=== PATIENT | male | born 1935 | race Caucasian/White ===

== ENCOUNTER 2018-03-07 21:00 | Inpatient (IN) | payer MEDICARE, OTHER ==
[2018-03-07 21:48] LABS: ADD MAN DIFF? NO
[2018-03-07 21:54] LABS: WHITE BLOOD COUNT 10.5 10^3/ul (4.8-10.8)
[2018-03-07 21:54] LABS: BASOPHILS % 0.3 % (0.0-2.0); EOSINOPHILS # 0.1 10^3/ul (0.0-0.5); EOSINOPHILS % 0.5 % (0.0-7.0); HEMATOCRIT 38.9 % (42.0-52.0); HEMOGLOBIN 13.1 g/dl (14.0-18.0); LYMPHOCYTES # 1.1 10^3/ul (0.8-2.9); LYMPHOCYTES % 10.3 % (15.0-51.0); MEAN CORPUSCULAR HEMOGLOBIN 30.5 pg (29.0-33.0); MEAN CORPUSCULAR HGB CONC 33.7 g/dl (32.0-37.0); MEAN CORPUSCULAR VOLUME 90.7 fl (82.0-101.0); MEAN PLATELET VOLUME 10.6 fl (7.4-10.4); MONOCYTE # 0.2 10^3/ul (0.3-0.9); MONOCYTES % 1.6 % (0.0-11.0); NEUTROPHIL # 9.1 10^3/ul (1.6-7.5); NEUTROPHILS % 86.8 % (39.0-77.0); PLATELET COUNT 146 10^3/UL (140-415); RED BLOOD COUNT 4.29 10^6/ul (4.70-6.10); RED CELL DISTRIBUTION WIDTH 13.2 % (11.5-14.5)
[2018-03-07 22:06] LABS: ADD UMIC YES; UR ASCORBIC ACID NEGATIVE (NEGATIVE); UR BACTERIA FEW /HPF (NONE SEEN); UR BILIRUBIN (Dip) NEGATIVE (NEGATIVE); UR BLOOD (Dip) 1+ mg/dL (NEGATIVE); UR CLARITY SLIGHTLY CLOUDY (CLEAR); UR COLOR YELLOW (YELLOW); UR GLUCOSE (Dip) NEGATIVE (NEGATIVE); UR KETONES (Dip) TRACE mg/dL (NEGATIVE); UR LEUKOCYTE ESTERASE (Dip) 3+ Leu/ul (NEGATIVE); UR MUCUS FEW /HPF (NONE SEEN); UR NITRITE (Dip) NEGATIVE (NEGATIVE); UR RBC 3 /HPF (0-5); UR SPECIFIC GRAVITY (Dip) 1.012 (1.003-1.030); UR TOTAL PROTEIN (Dip) NEGATIVE (NEGATIVE); UR UROBILINOGEN (Dip) NEGATIVE (NEGATIVE); UR WBC 48 /HPF (0-5)
[2018-03-07 22:18] LABS: LACTIC ACID 4.7 mmol/L (0.5-2.0)
[2018-03-07] MEDS: SODIUM CHLORIDE 0.9% 1L BAG IV* (22:18)
[2018-03-07 22:20] LABS: INR 1.03; PARTIAL THROMBOPLASTIN TIME 27.7 Sec (25.0-35.0); PROTIME 13.6 Sec (11.9-14.9); PT RATIO 1.1
[2018-03-07 22:31] LABS: ALANINE AMINOTRANSFERASE 35 IU/L (13-69); ALBUMIN 4.1 g/dl (3.3-4.9); ALBUMIN/GLOBULIN RATIO 1.41; ALKALINE PHOSPHATASE 101 IU/L (42-121); ANION GAP 20 (8-16); ASPARTATE AMINO TRANSFERASE 36 IU/L (15-46); BILIRUBIN,INDIRECT 0.5 mg/dl (0-1.1); BILIRUBIN,TOTAL 0.5 mg/dl (0.2-1.3); BLOOD UREA NITROGEN 11 mg/dl (7-20); CARBON DIOXIDE 20 mmol/L (21-31); CHLORIDE 101 mmol/L (97-110); CREATININE 0.94 mg/dl (0.61-1.24); GLUCOSE 177 mg/dl (70-220); POTASSIUM 3.4 mmol/L (3.5-5.1); SODIUM 138 mmol/L (135-144)
[2018-03-07] MEDS: CEFEPIME 2GM/50 ML (PMX) 50 ML IVPB (22:37)
[2018-03-07 22:42] LABS: TROPONIN-I 0.039 ng/ml (0.000-0.120)
[2018-03-08] MEDS ORDERED: hydrALAzine 20 MG INJ IV
[2018-03-08] MEDS ORDERED: ONDANSETRON 4 MG INJ IV
[2018-03-08] MEDS ORDERED: MAGNESIUM HYDROXIDE 30ML CUP PO
[2018-03-08] MEDS ORDERED: ALBUTEROL HFA 8 GM INHALER INH
[2018-03-08] MEDS ORDERED: NACL 0.9% 3 ML SYG IV ×2
[2018-03-08] MEDS ORDERED: DOCUSATE SODIUM 100 MG CAP PO
[2018-03-08] MEDS ORDERED: BISACODYL 10 MG SUPP PR
[2018-03-08 00:12] LABS: LACTIC ACID 5.5 mmol/L (0.5-2.0)
[2018-03-08] MEDS: VANCOMYCIN 1 GM (PMX) 250 ML IVPB (00:22)
[2018-03-08] MEDS: POTASSIUM CHLORIDE (SR) 20 MEQ TAB PO (00:22)
[2018-03-08] MEDS: SOD CHLORIDE 0.9% 1,000 ML IV ×3 (02:24→20:47)
[2018-03-08] MEDS: ACETAMINOPHEN 325 MG TAB PO ×2 (03:00→19:10)
[2018-03-08 03:55] LABS: LACTIC ACID 2.5 mmol/L (0.5-2.0)
[2018-03-08] MEDS: PANTOPRAZOLE (EC) 40 MG TAB PO (05:43)
[2018-03-08] MEDS: LEVOTHYROXINE 50 MCG TAB PO (07:00)
[2018-03-08 07:37] LABS: ADD MAN DIFF? NO
[2018-03-08 07:53] LABS: WHITE BLOOD COUNT 14.5 10^3/ul (4.8-10.8)
[2018-03-08 07:53] LABS: ABNORMAL IP MESSAGE 1; BASOPHILS % 0.1 % (0.0-2.0); EOSINOPHILS % 0.2 % (0.0-7.0); HEMATOCRIT 36.7 % (42.0-52.0); LYMPHOCYTES # 0.6 10^3/ul (0.8-2.9); MEAN CORPUSCULAR HEMOGLOBIN 30.6 pg (29.0-33.0); MEAN CORPUSCULAR HGB CONC 32.7 g/dl (32.0-37.0); MEAN CORPUSCULAR VOLUME 93.6 fl (82.0-101.0); MEAN PLATELET VOLUME 11.9 fl (7.4-10.4); MONOCYTE # 0.5 10^3/ul (0.3-0.9); MONOCYTES % 3.1 % (0.0-11.0); NEUTROPHIL # 13.3 10^3/ul (1.6-7.5); NEUTROPHILS % 92.3 % (39.0-77.0); PLATELET COUNT 135 10^3/UL (140-415); POSITIVE DIFF @See below; RED BLOOD COUNT 3.92 10^6/ul (4.70-6.10); RED CELL DISTRIBUTION WIDTH 13.6 % (11.5-14.5)
[2018-03-08 08:30] LABS: ANION GAP 14 (8-16); BLOOD UREA NITROGEN 11 mg/dl (7-20); CALCIUM 7.9 mg/dl (8.4-10.2); CARBON DIOXIDE 23 mmol/L (21-31); CHLORIDE 109 mmol/L (97-110); CREATININE 0.88 mg/dl (0.61-1.24); GLUCOSE 126 mg/dl (70-220); MAGNESIUM 1.5 mg/dl (1.7-2.5); PHOSPHORUS 2.8 mg/dl (2.5-4.9); POTASSIUM 4.1 mmol/L (3.5-5.1); SODIUM 142 mmol/L (135-144)
[2018-03-08] MEDS: OLOPATADINE 0.2% (ONCE A DAY) OPHTH DROP 2.5 ML BOTH EYES (08:37)
[2018-03-08] MEDS: FISH OIL 1,000 MG CAP PO ×2 (08:37→20:48)
[2018-03-08] MEDS: PREGABALIN 75 MG CAP PO ×2 (08:37→20:48)
[2018-03-08] MEDS: ENOXAPARIN 40 MG/0.4 ML SYG SC (08:42)
[2018-03-08] MEDS ORDERED: [UNRECOGNIZED DRUG - OTHER] OP (09:00)
[2018-03-08] MEDS ORDERED: CEFEPIME 2GM/50 ML (PMX) 50 ML IVPB (09:00)
[2018-03-08] MEDS ORDERED: DEXTRAN OP (09:00)
[2018-03-08] MEDS ORDERED: HYPROMELLOSE OP (09:00)
[2018-03-08] MEDS ORDERED: LEVALBUTEROL (NEB) 0.63 MG/3 ML AMP (10:45)
[2018-03-08] MEDS: LEVALBUTEROL (NEB) 0.63 MG/3 ML AMP HHN ×2 (10:48→11:06)
[2018-03-08] MEDS ORDERED: IPRATROPIUM (NEB) 0.5 MG/2.5 ML AMP (11:03)
[2018-03-08] MEDS: IPRATROPIUM (NEB) 0.5 MG/2.5 ML AMP HHN (11:09)
[2018-03-08] MEDS: MAGNESIUM SULFATE 4 GM/100 ML 100 ML IVPB (11:30)
[2018-03-08] MEDS ORDERED: GLUCAGON 1 MG INJ IM (12:00)
[2018-03-08] MEDS ORDERED: GLUCOSE GEL 15 GRAM TUBE BUCCAL (12:00)
[2018-03-08] MEDS ORDERED: GLUCOSE GEL 15 GRAM TUBE PO ×2 (12:00)
[2018-03-08] MEDS: INSULIN ASPART [NOVOLOG] 3 ML PEN SC ×3 (12:00→20:59)
[2018-03-08] MEDS: ARTIFICIAL TEARS 15 ML OPH BOTH EYES (12:00)
[2018-03-08] MEDS ORDERED: DEXTROSE 50% 50 ML SYRINGE IV ×2 (12:00)
[2018-03-08 12:39] LABS: LACTIC ACID 5.2 mmol/L (0.5-2.0)
[2018-03-08] MEDS: MEROPENEM 1 GM/50ML(PMX) 50 ML IVPB ×2 (14:34→21:00)
[2018-03-08 17:11] LABS: LACTIC ACID 2.3 mmol/L (0.5-2.0)
[2018-03-08] MEDS: ATORVASTATIN 20 MG TAB PO (20:48)
[2018-03-09] MEDS: ACCU-CHEK XX (02:00)
[2018-03-09] MEDS: ACETAMINOPHEN 325 MG TAB PO (04:29)
[2018-03-09] MEDS ORDERED: METHYLPREDNISOLONE 125 MG INJ (04:46)
[2018-03-09] MEDS: LEVALBUTEROL (NEB) 0.63 MG/3 ML AMP HHN (04:52)
[2018-03-09] MEDS: IPRATROPIUM (NEB) 0.5 MG/2.5 ML AMP HHN (04:52)
[2018-03-09] MEDS: METHYLPREDNISOLONE 125 MG INJ IV (05:06)
[2018-03-09] MEDS: FUROSEMIDE 40 MG INJ IV ×2 (05:07→05:42)
[2018-03-09] MEDS ORDERED: LORAZEPAM 2 MG INJ (05:39)
[2018-03-09] MEDS: SOD CHLORIDE 0.9% 1,000 ML IV ×2 (05:46→15:52)
[2018-03-09] MEDS: MEROPENEM 1 GM/50ML(PMX) 50 ML IVPB ×3 (05:52→21:34)
[2018-03-09] MEDS: PANTOPRAZOLE (EC) 40 MG TAB PO (06:00)
[2018-03-09] MEDS ORDERED: METHYLPREDNISOLONE 40 MG INJ IV (06:00)
[2018-03-09] MEDS: LORAZEPAM 2 MG INJ IV (06:04)
[2018-03-09 06:40] LABS: WHITE BLOOD COUNT 10.1 10^3/ul (4.8-10.8)
[2018-03-09 06:40] LABS: HEMATOCRIT 38.8 % (42.0-52.0); HEMOGLOBIN 12.8 g/dl (14.0-18.0); MEAN CORPUSCULAR HEMOGLOBIN 30.5 pg (29.0-33.0); MEAN CORPUSCULAR VOLUME 92.6 fl (82.0-101.0); MEAN PLATELET VOLUME 11.9 fl (7.4-10.4); PLATELET COUNT 119 10^3/UL (140-415); POSITIVE DIFF @See below; RED BLOOD COUNT 4.19 10^6/ul (4.70-6.10); RED CELL DISTRIBUTION WIDTH 13.9 % (11.5-14.5)
[2018-03-09] MEDS: LEVOTHYROXINE 50 MCG TAB PO (06:45)
[2018-03-09 06:48] LABS: ADD MAN DIFF? YES
[2018-03-09 06:51] LABS: HEMOGLOBIN A1C 7.6 % (0-5.9)
[2018-03-09 07:03] LABS: PHOSPHORUS 2.9 mg/dl (2.5-4.9)
[2018-03-09 07:11] LABS: ALANINE AMINOTRANSFERASE 25 IU/L (13-69); ALBUMIN 3.6 g/dl (3.3-4.9); ALBUMIN/GLOBULIN RATIO 1.16; ALKALINE PHOSPHATASE 89 IU/L (42-121); ANION GAP 18 (8-16); ASPARTATE AMINO TRANSFERASE 47 IU/L (15-46); BILIRUBIN,INDIRECT 0.3 mg/dl (0-1.1); BILIRUBIN,TOTAL 0.3 mg/dl (0.2-1.3); BLOOD UREA NITROGEN 13 mg/dl (7-20); CALCIUM 8.1 mg/dl (8.4-10.2); CARBON DIOXIDE 14 mmol/L (21-31); CHLORIDE 110 mmol/L (97-110); CREATININE 1.04 mg/dl (0.61-1.24); GLUCOSE 212 mg/dl (70-220); POTASSIUM 3.9 mmol/L (3.5-5.1); SODIUM 138 mmol/L (135-144); TOTAL PROTEIN 6.7 g/dl (6.1-8.1)
[2018-03-09 07:33] LABS: ANISOCYTOSIS 1+ (0-0); BAND NEUTROPHILS #M 2.7 10^3/ul (0.0-0.6); BAND NEUTROPHILS % (M) 27 % (0-4); BURR CELLS 3+ (0-0); LYMPHOCYTES #M 1.1 10^3/ul (0.8-2.9); LYMPHOCYTES % (M) 11 % (15-51); MICROCYTOSIS 1+ (0-0); MONOCYTE #M 0.3 10^3/ul (0.3-0.9); MONOCYTES % (M) 3 % (0-11); PLATELET ESTIMATE DECREASED; POIKILOCYTOSIS 3+ (0-0); SEG NEUT #M 6.2 10^3/ul (1.6-7.5); SEGMENTED NEUTROPHILS (M) % 59 % (39-77); SMUDGE%M 1 % (0-0)
[2018-03-09 07:48] LABS: B-TYPE NATRIURETIC PEPTIDE 5510 PG/ML (0-450)
[2018-03-09] MEDS: ARTIFICIAL TEARS 15 ML OPH BOTH EYES (08:44)
[2018-03-09] MEDS: PREGABALIN 75 MG CAP PO ×2 (08:45→21:25)
[2018-03-09] MEDS: FISH OIL 1,000 MG CAP PO ×2 (08:45→21:25)
[2018-03-09] MEDS: OLOPATADINE 0.2% (ONCE A DAY) OPHTH DROP 2.5 ML BOTH EYES (08:45)
[2018-03-09] MEDS: ENOXAPARIN 40 MG/0.4 ML SYG SC (10:09)
[2018-03-09] MEDS: INSULIN ASPART [NOVOLOG] 3 ML PEN SC ×4 (10:09→21:43)
[2018-03-09 13:35] LABS: LACTIC ACID 3.1 mmol/L (0.5-2.0)
[2018-03-09 13:36] LABS: CREATINE KINASE 531 IU/L (23-200)
[2018-03-09 13:42] LABS: CK INDEX 1.1; CK-MB 5.85 ng/ml (0.0-2.4)
[2018-03-09] MEDS: ASPIRIN 81 MG TAB PO (18:24)
[2018-03-09 21:02] LABS: CREATINE KINASE 492 IU/L (23-200)
[2018-03-09 21:14] LABS: CK INDEX 1.4; CK-MB 6.73 ng/ml (0.0-2.4); TROPONIN-I 0.779 ng/ml (0.000-0.120)
[2018-03-09] MEDS: ATORVASTATIN 40 MG TAB PO (21:25)
[2018-03-09] MEDS: ENOXAPARIN 100 MG/ML SYG SC (21:42)
[2018-03-09] MEDS: INSULIN GLARGINE [LANTus] (100 UNITS/ML) SYG SC (23:35)
[2018-03-10] MEDS: ACCU-CHEK XX (02:00)
[2018-03-10] MEDS: PANTOPRAZOLE (EC) 40 MG TAB PO (06:11)
[2018-03-10] MEDS: LEVOTHYROXINE 50 MCG TAB PO (06:11)
[2018-03-10] MEDS: MEROPENEM 1 GM/50ML(PMX) 50 ML IVPB ×3 (06:12→21:18)
[2018-03-10 07:22] LABS: ADD MAN DIFF? NO
[2018-03-10 07:27] LABS: BASOPHILS % 0.1 % (0.0-2.0); HEMATOCRIT 32.6 % (42.0-52.0); HEMOGLOBIN 10.8 g/dl (14.0-18.0); LYMPHOCYTES # 0.9 10^3/ul (0.8-2.9); LYMPHOCYTES % 6.3 % (15.0-51.0); MEAN CORPUSCULAR HEMOGLOBIN 29.8 pg (29.0-33.0); MEAN CORPUSCULAR HGB CONC 33.1 g/dl (32.0-37.0); MEAN CORPUSCULAR VOLUME 89.8 fl (82.0-101.0); MEAN PLATELET VOLUME 11.5 fl (7.4-10.4); MONOCYTE # 1.2 10^3/ul (0.3-0.9); NEUTROPHIL # 12.4 10^3/ul (1.6-7.5); NEUTROPHILS % 84.8 % (39.0-77.0); PLATELET COUNT 115 10^3/UL (140-415); RED BLOOD COUNT 3.63 10^6/ul (4.70-6.10); RED CELL DISTRIBUTION WIDTH 13.6 % (11.5-14.5)
[2018-03-10 07:27] LABS: WHITE BLOOD COUNT 14.6 10^3/ul (4.8-10.8)
[2018-03-10 08:05] LABS: ANION GAP 9 (8-16); BLOOD UREA NITROGEN 23 mg/dl (7-20); CALCIUM 8.1 mg/dl (8.4-10.2); CARBON DIOXIDE 23 mmol/L (21-31); CHLORIDE 112 mmol/L (97-110); CREATININE 0.89 mg/dl (0.61-1.24); GLUCOSE 196 mg/dl (70-220); POTASSIUM 3.9 mmol/L (3.5-5.1); SODIUM 140 mmol/L (135-144)
[2018-03-10] MEDS: FISH OIL 1,000 MG CAP PO ×2 (08:44→21:17)
[2018-03-10] MEDS: PREGABALIN 75 MG CAP PO ×2 (08:44→21:17)
[2018-03-10] MEDS: OLOPATADINE 0.2% (ONCE A DAY) OPHTH DROP 2.5 ML BOTH EYES (08:44)
[2018-03-10] MEDS: ASPIRIN 81 MG TAB PO (08:44)
[2018-03-10] MEDS: ARTIFICIAL TEARS 15 ML OPH BOTH EYES (08:45)
[2018-03-10] MEDS: INSULIN ASPART [NOVOLOG] 3 ML PEN SC ×4 (08:49→21:00)
[2018-03-10] MEDS: ENOXAPARIN 100 MG/ML SYG SC ×2 (08:50→21:35)
[2018-03-10 09:00] LABS: MAGNESIUM 2.3 mg/dl (1.7-2.5)
[2018-03-10] MEDS ORDERED: INSULIN GLARGINE [LANTus] (100 UNITS/ML) SYG SC (20:00)
[2018-03-10] MEDS: ATORVASTATIN 40 MG TAB PO (21:17)
[2018-03-10] MEDS: INSULIN GLARGINE [LANTus] (100 UNITS/ML) SYG SC (21:37)
[2018-03-11] MEDS: ACCU-CHEK XX (02:00)
[2018-03-11] MEDS: LEVOTHYROXINE 50 MCG TAB PO (06:03)
[2018-03-11] MEDS: PANTOPRAZOLE (EC) 40 MG TAB PO (06:03)
[2018-03-11] MEDS: MEROPENEM 1 GM/50ML(PMX) 50 ML IVPB ×3 (06:04→21:40)
[2018-03-11 06:29] LABS: ADD MAN DIFF? NO
[2018-03-11 06:34] LABS: BASOPHILS % 0.2 % (0.0-2.0); EOSINOPHILS # 0.1 10^3/ul (0.0-0.5); EOSINOPHILS % 0.7 % (0.0-7.0); HEMATOCRIT 36.4 % (42.0-52.0); HEMOGLOBIN 12.2 g/dl (14.0-18.0); LYMPHOCYTES # 2.3 10^3/ul (0.8-2.9); LYMPHOCYTES % 19.9 % (15.0-51.0); MEAN CORPUSCULAR HEMOGLOBIN 30.3 pg (29.0-33.0); MEAN CORPUSCULAR HGB CONC 33.5 g/dl (32.0-37.0); MEAN CORPUSCULAR VOLUME 90.3 fl (82.0-101.0); MONOCYTE # 1.2 10^3/ul (0.3-0.9); MONOCYTES % 10.2 % (0.0-11.0); NEUTROPHIL # 7.9 10^3/ul (1.6-7.5); NEUTROPHILS % 67.4 % (39.0-77.0); PLATELET COUNT 146 10^3/UL (140-415); RED BLOOD COUNT 4.03 10^6/ul (4.70-6.10); RED CELL DISTRIBUTION WIDTH 13.7 % (11.5-14.5)
[2018-03-11 06:34] LABS: WHITE BLOOD COUNT 11.7 10^3/ul (4.8-10.8)
[2018-03-11 07:01] LABS: ANION GAP 11 (8-16); BLOOD UREA NITROGEN 25 mg/dl (7-20); CALCIUM 8.5 mg/dl (8.4-10.2); CARBON DIOXIDE 24 mmol/L (21-31); CHLORIDE 110 mmol/L (97-110); CREATININE 0.94 mg/dl (0.61-1.24); GLUCOSE 119 mg/dl (70-220); POTASSIUM 3.8 mmol/L (3.5-5.1); SODIUM 141 mmol/L (135-144)
[2018-03-11 07:04] LABS: PHOSPHORUS 2.5 mg/dl (2.5-4.9)
[2018-03-11 07:04] LABS: MAGNESIUM 2.1 mg/dl (1.7-2.5)
[2018-03-11] MEDS: INSULIN ASPART [NOVOLOG] 3 ML PEN SC ×4 (08:00→20:25)
[2018-03-11] MEDS: PREGABALIN 75 MG CAP PO ×2 (08:17→20:23)
[2018-03-11] MEDS: ACETAMINOPHEN 325 MG TAB PO (08:17)
[2018-03-11] MEDS: ASPIRIN 81 MG TAB PO (08:17)
[2018-03-11] MEDS: OLOPATADINE 0.2% (ONCE A DAY) OPHTH DROP 2.5 ML BOTH EYES (08:17)
[2018-03-11] MEDS: FISH OIL 1,000 MG CAP PO ×2 (08:17→20:23)
[2018-03-11] MEDS: ARTIFICIAL TEARS 15 ML OPH BOTH EYES (08:17)
[2018-03-11] MEDS: ENOXAPARIN 100 MG/ML SYG SC ×2 (08:23→20:25)
[2018-03-11] MEDS: METOPROLOL 25 MG TAB PO (20:23)
[2018-03-11] MEDS: ATORVASTATIN 40 MG TAB PO (20:23)
[2018-03-11] MEDS: INSULIN GLARGINE [LANTus] (100 UNITS/ML) SYG SC (21:40)
[2018-03-12] MEDS: ACCU-CHEK XX (02:00)
[2018-03-12] MEDS: LEVOTHYROXINE 50 MCG TAB PO (06:22)
[2018-03-12] MEDS: PANTOPRAZOLE (EC) 40 MG TAB PO (06:22)
[2018-03-12] MEDS: MEROPENEM 1 GM/50ML(PMX) 50 ML IVPB ×3 (06:22→21:30)
[2018-03-12 06:49] LABS: ADD MAN DIFF? NO
[2018-03-12 07:06] LABS: ANION GAP 11 (8-16); BLOOD UREA NITROGEN 19 mg/dl (7-20); CARBON DIOXIDE 28 mmol/L (21-31); CHLORIDE 107 mmol/L (97-110); CREATININE 0.82 mg/dl (0.61-1.24); GLUCOSE 78 mg/dl (70-220); POTASSIUM 3.5 mmol/L (3.5-5.1); SODIUM 142 mmol/L (135-144)
[2018-03-12 07:07] LABS: CALCIUM 8.2 mg/dl (8.4-10.2)
[2018-03-12 07:08] LABS: PHOSPHORUS 2.9 mg/dl (2.5-4.9)
[2018-03-12 07:11] LABS: BASOPHILS % 0.4 % (0.0-2.0); EOSINOPHILS # 0.1 10^3/ul (0.0-0.5); EOSINOPHILS % 1.4 % (0.0-7.0); HEMATOCRIT 35.4 % (42.0-52.0); HEMOGLOBIN 11.6 g/dl (14.0-18.0); LYMPHOCYTES # 1.8 10^3/ul (0.8-2.9); MEAN CORPUSCULAR HEMOGLOBIN 29.7 pg (29.0-33.0); MEAN CORPUSCULAR HGB CONC 32.8 g/dl (32.0-37.0); MEAN CORPUSCULAR VOLUME 90.5 fl (82.0-101.0); MEAN PLATELET VOLUME 11.8 fl (7.4-10.4); MONOCYTE # 1.1 10^3/ul (0.3-0.9); MONOCYTES % 11.6 % (0.0-11.0); NEUTROPHIL # 6.4 10^3/ul (1.6-7.5); NEUTROPHILS % 65.5 % (39.0-77.0); PLATELET COUNT 138 10^3/UL (140-415); POSITIVE DIFF @See below; RED BLOOD COUNT 3.91 10^6/ul (4.70-6.10); RED CELL DISTRIBUTION WIDTH 13.6 % (11.5-14.5)
[2018-03-12 07:11] LABS: WHITE BLOOD COUNT 9.7 10^3/ul (4.8-10.8)
[2018-03-12 07:36] LABS: FREE T4 (FREE THYROXINE) 0.92 ng/dl (0.85-1.93)
[2018-03-12] MEDS: INSULIN ASPART [NOVOLOG] 3 ML PEN SC ×4 (07:50→21:00)
[2018-03-12] MEDS: ARTIFICIAL TEARS 15 ML OPH BOTH EYES (08:19)
[2018-03-12] MEDS: OLOPATADINE 0.2% (ONCE A DAY) OPHTH DROP 2.5 ML BOTH EYES (08:19)
[2018-03-12] MEDS: FISH OIL 1,000 MG CAP PO ×2 (08:20→21:13)
[2018-03-12] MEDS: PREGABALIN 75 MG CAP PO ×2 (08:20→21:14)
[2018-03-12] MEDS: ASPIRIN 81 MG TAB PO (08:20)
[2018-03-12] MEDS: ENOXAPARIN 100 MG/ML SYG SC ×2 (08:25→21:15)
[2018-03-12] MEDS: METOPROLOL 25 MG TAB PO ×2 (08:28→21:14)
[2018-03-12] MEDS: ACETAMINOPHEN 325 MG TAB PO (11:52)
[2018-03-12] MEDS: ATORVASTATIN 40 MG TAB PO (21:13)
[2018-03-12] MEDS: INSULIN GLARGINE [LANTus] (100 UNITS/ML) SYG SC (21:15)
[2018-03-13] MEDS: ACCU-CHEK XX (02:00)
[2018-03-13] MEDS: LEVOTHYROXINE 50 MCG TAB PO (06:36)
[2018-03-13] MEDS: MEROPENEM 1 GM/50ML(PMX) 50 ML IVPB ×3 (06:36→22:17)
[2018-03-13] MEDS: PANTOPRAZOLE (EC) 40 MG TAB PO (06:36)
[2018-03-13 06:46] LABS: ADD MAN DIFF? NO
[2018-03-13 06:50] LABS: BASOPHILS % 0.4 % (0.0-2.0); EOSINOPHILS # 0.2 10^3/ul (0.0-0.5); EOSINOPHILS % 1.6 % (0.0-7.0); HEMATOCRIT 36.3 % (42.0-52.0); LYMPHOCYTES # 1.9 10^3/ul (0.8-2.9); LYMPHOCYTES % 18.6 % (15.0-51.0); MEAN CORPUSCULAR HEMOGLOBIN 30.1 pg (29.0-33.0); MEAN CORPUSCULAR HGB CONC 33.1 g/dl (32.0-37.0); MEAN PLATELET VOLUME 11.3 fl (7.4-10.4); MONOCYTE # 1.1 10^3/ul (0.3-0.9); MONOCYTES % 10.9 % (0.0-11.0); NEUTROPHIL # 6.5 10^3/ul (1.6-7.5); NEUTROPHILS % 65.2 % (39.0-77.0); PLATELET COUNT 170 10^3/UL (140-415); RED BLOOD COUNT 3.99 10^6/ul (4.70-6.10); RED CELL DISTRIBUTION WIDTH 13.3 % (11.5-14.5)
[2018-03-13 07:16] LABS: ANION GAP 13 (8-16); BLOOD UREA NITROGEN 17 mg/dl (7-20); CALCIUM 8.5 mg/dl (8.4-10.2); CARBON DIOXIDE 29 mmol/L (21-31); CHLORIDE 102 mmol/L (97-110); CREATININE 0.82 mg/dl (0.61-1.24); GLUCOSE 103 mg/dl (70-220); MAGNESIUM 2.1 mg/dl (1.7-2.5); POTASSIUM 3.6 mmol/L (3.5-5.1); SODIUM 140 mmol/L (135-144)
[2018-03-13] MEDS: INSULIN ASPART [NOVOLOG] 3 ML PEN SC ×4 (08:00→20:29)
[2018-03-13] MEDS: FISH OIL 1,000 MG CAP PO ×2 (08:13→20:29)
[2018-03-13] MEDS: OLOPATADINE 0.2% (ONCE A DAY) OPHTH DROP 2.5 ML BOTH EYES (08:13)
[2018-03-13] MEDS: ARTIFICIAL TEARS 15 ML OPH BOTH EYES (08:13)
[2018-03-13] MEDS: ERGOCALCIFEROL 50,000 UNIT CAP PO (08:13)
[2018-03-13] MEDS: ASPIRIN 81 MG TAB PO (08:13)
[2018-03-13] MEDS: METOPROLOL 25 MG TAB PO ×2 (08:17→20:29)
[2018-03-13] MEDS: PREGABALIN 75 MG CAP PO ×2 (08:17→20:29)
[2018-03-13] MEDS ORDERED: ENOXAPARIN 40 MG/0.4 ML SYG SC (10:30)
[2018-03-13] MEDS: ENOXAPARIN 100 MG/ML SYG SC (12:15)
[2018-03-13] MEDS: ATORVASTATIN 40 MG TAB PO (20:29)
[2018-03-13] MEDS: INSULIN GLARGINE [LANTus] (100 UNITS/ML) SYG SC (20:38)
[2018-03-14] MEDS: ACCU-CHEK XX (01:40)
[2018-03-14] MEDS: PANTOPRAZOLE (EC) 40 MG TAB PO (06:00)
[2018-03-14] MEDS: MEROPENEM 1 GM/50ML(PMX) 50 ML IVPB ×4 (06:00→21:09)
[2018-03-14] MEDS: LEVOTHYROXINE 50 MCG TAB PO (06:07)
[2018-03-14] MEDS: INSULIN ASPART [NOVOLOG] 3 ML PEN SC ×4 (08:00→21:03)
[2018-03-14] MEDS: ARTIFICIAL TEARS 15 ML OPH BOTH EYES (08:10)
[2018-03-14] MEDS: OLOPATADINE 0.2% (ONCE A DAY) OPHTH DROP 2.5 ML BOTH EYES (08:10)
[2018-03-14] MEDS: ASPIRIN 81 MG TAB PO (08:11)
[2018-03-14] MEDS: FISH OIL 1,000 MG CAP PO ×2 (08:11→21:05)
[2018-03-14] MEDS: PREGABALIN 75 MG CAP PO ×2 (08:14→21:06)
[2018-03-14] MEDS: METOPROLOL 25 MG TAB PO ×2 (08:14→21:10)
[2018-03-14] MEDS ORDERED: IODIXANOL LOCM 100 ML BTL (11:55)
[2018-03-14] MEDS ORDERED: VERAPAMIL 5 MG INJ (11:55)
[2018-03-14] MEDS ORDERED: HEPARIN 1000 UNITS/NS (A-LINE) 0 ML (11:55)
[2018-03-14] MEDS ORDERED: LIDOCAINE 1% (MDV) 10 ML INJ (11:55)
[2018-03-14] MEDS ORDERED: NITROGLYCERIN (IC) 100 MCG/ML INJ (11:55)
[2018-03-14] MEDS ORDERED: SOD CHLORIDE 0.9% 500 ML (12:14)
[2018-03-14] MEDS ORDERED: MIDAZOLAM 1 MG/ML 2 ML INJ (12:15)
[2018-03-14] MEDS ORDERED: HEPARIN 1000 UNITS/ML 10 ML INJ (12:15)
[2018-03-14] MEDS ORDERED: FENTAnyl 50 MCG/ML VIAL (12:15)
[2018-03-14] MEDS: INSULIN GLARGINE [LANTus] (100 UNITS/ML) SYG SC (21:02)
[2018-03-14] MEDS: ATORVASTATIN 40 MG TAB PO (21:06)
[2018-03-15] MEDS: ACCU-CHEK XX (02:28)
[2018-03-15] MEDS: PANTOPRAZOLE (EC) 40 MG TAB PO (06:51)
[2018-03-15] MEDS: LEVOTHYROXINE 50 MCG TAB PO (06:51)
[2018-03-15] MEDS: MEROPENEM 1 GM/50ML(PMX) 50 ML IVPB (06:51)
[2018-03-15] MEDS: INSULIN ASPART [NOVOLOG] 3 ML PEN SC (07:51)
[2018-03-15] MEDS: FISH OIL 1,000 MG CAP PO (08:33)
[2018-03-15] MEDS: PREGABALIN 75 MG CAP PO (08:33)
[2018-03-15] MEDS: METOPROLOL 25 MG TAB PO (08:34)
[2018-03-15] MEDS: ASPIRIN 81 MG TAB PO (08:34)
[2018-03-15] MEDS: OLOPATADINE 0.2% (ONCE A DAY) OPHTH DROP 2.5 ML BOTH EYES (08:37)
[2018-03-15] MEDS: ARTIFICIAL TEARS 15 ML OPH BOTH EYES (08:38)
[2018-03-15 10:22] LABS: ANION GAP 8 (8-16); BLOOD UREA NITROGEN 15 mg/dl (7-20); CALCIUM 8.8 mg/dl (8.4-10.2); CARBON DIOXIDE 34 mmol/L (21-31); CHLORIDE 102 mmol/L (97-110); CREATININE 0.85 mg/dl (0.61-1.24); GLUCOSE 153 mg/dl (70-220); POTASSIUM 4.2 mmol/L (3.5-5.1); SODIUM 140 mmol/L (135-144)
== END 2018-03-15 11:35 | disposition home or self-care (01) | DRG 871 ==
LOC: MS4 23:36 → E/R 21:00
PROC: 4A033BC Measurement of Arterial Pressure, Coronary, Percutaneous Approach (ICD-10-PCS; principal; 2018-03-14 12:03)
PROC: B211YZZ Fluoroscopy of Multiple Coronary Arteries using Other Contrast (ICD-10-PCS; 2018-03-14 12:03)
DX: A41.51 Sepsis due to Escherichia coli [E. coli] (principal); I50.33 Acute on chronic diastolic (congestive) heart failure; G93.41 Metabolic encephalopathy; I21.4 Non-ST elevation (NSTEMI) myocardial infarction; N39.0 Urinary tract infection, site not specified; Z68.41 Body mass index [BMI] 40.0-44.9, adult; I11.0 Hypertensive heart disease with heart failure; R65.20 Severe sepsis without septic shock; E11.42 Type 2 diabetes mellitus with diabetic polyneuropathy; R06.03 Acute respiratory distress; J45.909 Unspecified asthma, uncomplicated; E78.5 Hyperlipidemia, unspecified; E03.9 Hypothyroidism, unspecified; I25.10 Atherosclerotic heart disease of native coronary artery without angina pectoris; E66.01 Morbid (severe) obesity due to excess calories; M17.11 Unilateral primary osteoarthritis, right knee; M54.5 Low back pain
CPT/HCPCS: 71045; 72148; 76775; 80048; 80053; 81001; 82550; 82553; 82962; 83036; 83605; 83735; 83880; 84100; 84439; 84443; 84484; 85025; 85610; 85651; 85730; 87040; 87086; 93005; 93306; 93454; 93571; 94640; 94664; 96374; 97162; 99291-25; G0378

== ENCOUNTER 2018-03-21 21:02 | Inpatient (IN) | payer MEDICARE, OTHER ==
[2018-03-21 21:31] LABS: ADD MAN DIFF? NO
[2018-03-21 21:34] LABS: BASOPHILS % 0.2 % (0.0-2.0); EOSINOPHILS # 0.1 10^3/ul (0.0-0.5); EOSINOPHILS % 0.4 % (0.0-7.0); HEMATOCRIT 36.3 % (42.0-52.0); HEMOGLOBIN 11.8 g/dl (14.0-18.0); LYMPHOCYTES % 7.8 % (15.0-51.0); MEAN CORPUSCULAR HEMOGLOBIN 29.3 pg (29.0-33.0); MEAN CORPUSCULAR HGB CONC 32.5 g/dl (32.0-37.0); MEAN CORPUSCULAR VOLUME 90.1 fl (82.0-101.0); MEAN PLATELET VOLUME 9.9 fl (7.4-10.4); MONOCYTE # 0.7 10^3/ul (0.3-0.9); MONOCYTES % 5.3 % (0.0-11.0); NEUTROPHILS % 85.8 % (39.0-77.0); PLATELET COUNT 325 10^3/UL (140-415); RED BLOOD COUNT 4.03 10^6/ul (4.70-6.10); RED CELL DISTRIBUTION WIDTH 13.7 % (11.5-14.5)
[2018-03-21 21:34] LABS: WHITE BLOOD COUNT 12.9 10^3/ul (4.8-10.8)
[2018-03-21] MEDS: SODIUM CHLORIDE 0.9% 1L BAG IV* (21:35)
[2018-03-21] MEDS: ONDANSETRON 4 MG INJ IV (21:35)
[2018-03-21] MEDS: CEFEPIME 2GM/50 ML (PMX) 50 ML IVPB (21:36)
[2018-03-21 21:42] LABS: ADD UMIC YES; UR ASCORBIC ACID NEGATIVE (NEGATIVE); UR BILIRUBIN (Dip) NEGATIVE (NEGATIVE); UR BLOOD (Dip) 1+ mg/dL (NEGATIVE); UR CLARITY CLEAR (CLEAR); UR COLOR YELLOW (YELLOW); UR GLUCOSE (Dip) NEGATIVE (NEGATIVE); UR KETONES (Dip) NEGATIVE (NEGATIVE); UR LEUKOCYTE ESTERASE (Dip) TRACE Leu/ul (NEGATIVE); UR MUCUS FEW /HPF (NONE SEEN); UR NITRITE (Dip) NEGATIVE (NEGATIVE); UR RBC 1 /HPF (0-5); UR SPECIFIC GRAVITY (Dip) 1.015 (1.003-1.030); UR TOTAL PROTEIN (Dip) 1+ mg/dl (NEGATIVE); UR UROBILINOGEN (Dip) NEGATIVE (NEGATIVE); UR WBC 2 /HPF (0-5)
[2018-03-21 21:54] LABS: INR 0.97; PARTIAL THROMBOPLASTIN TIME 30.9 Sec (25.0-35.0)
[2018-03-21 21:57] LABS: ALANINE AMINOTRANSFERASE 41 IU/L (13-69); ALBUMIN/GLOBULIN RATIO 1.11; ALKALINE PHOSPHATASE 134 IU/L (42-121); ANION GAP 15 (8-16); ASPARTATE AMINO TRANSFERASE 48 IU/L (15-46); BILIRUBIN,INDIRECT 0.7 mg/dl (0-1.1); BILIRUBIN,TOTAL 0.7 mg/dl (0.2-1.3); BLOOD UREA NITROGEN 11 mg/dl (7-20); CALCIUM 9.2 mg/dl (8.4-10.2); CARBON DIOXIDE 24 mmol/L (21-31); CHLORIDE 101 mmol/L (97-110); CREATININE 1.02 mg/dl (0.61-1.24); GLUCOSE 200 mg/dl (70-220); SODIUM 136 mmol/L (135-144); TOTAL PROTEIN 7.6 g/dl (6.1-8.1)
[2018-03-21 22:02] LABS: LACTIC ACID 1.9 mmol/L (0.5-2.0)
[2018-03-21 22:07] LABS: TROPONIN-I 0.022 ng/ml (0.000-0.120)
[2018-03-21] MEDS: HYDROCODONE/APAP (5/325) TAB PO (22:58)
[2018-03-21] MEDS: ACETAMINOPHEN 325 MG TAB PO (22:58)
[2018-03-21] MEDS: KETOROLAC 15 MG INJ IV (22:58)
[2018-03-22] MEDS ORDERED: GLUCOSE GEL 15 GRAM TUBE BUCCAL (01:00)
[2018-03-22] MEDS ORDERED: ONDANSETRON 4 MG INJ IV (01:00)
[2018-03-22] MEDS ORDERED: GLUCOSE GEL 15 GRAM TUBE PO ×2 (01:00)
[2018-03-22] MEDS ORDERED: DEXTROSE 50% 50 ML SYRINGE IV ×2 (01:00)
[2018-03-22] MEDS ORDERED: GLUCAGON 1 MG INJ IM (01:00)
[2018-03-22] MEDS: SOD CHLORIDE 0.9% 1,000 ML IV ×3 (01:09→14:40)
[2018-03-22] MEDS: ACCU-CHEK XX (02:00)
[2018-03-22 02:14] LABS: LACTIC ACID 1.2 mmol/L (0.5-2.0)
[2018-03-22] MEDS: SOD CHLORIDE 0.9% 500 ML IV ×2 (03:46→05:11)
[2018-03-22] MEDS: INSULIN ASPART [NOVOLOG] 3 ML PEN SC ×4 (08:00→20:37)
[2018-03-22] MEDS: ACETAMINOPHEN 325 MG TAB PO ×2 (08:53→20:33)
[2018-03-22] MEDS: INSULIN GLARGINE [LANTus] (100 UNITS/ML) SYG SC (10:15)
[2018-03-22] MEDS: MEROPENEM 1 GM/50ML(PMX) 50 ML IVPB ×2 (10:16→21:01)
[2018-03-22] MEDS ORDERED: NON-FORMULARY/PATIENT OWN MED (Ergocalciferol (Vitamin D2) (Vitamin D2) 50,000 UNIT) PO (11:00)
[2018-03-22] MEDS ORDERED: ALBUTEROL HFA 8 GM INHALER INH (12:30)
[2018-03-22] MEDS: FISH OIL 1,000 MG CAP PO (20:32)
[2018-03-22] MEDS: ATORVASTATIN 40 MG TAB PO (20:32)
[2018-03-22] MEDS: PREGABALIN 75 MG CAP PO (20:33)
[2018-03-22] MEDS: METOPROLOL 25 MG TAB PO (20:34)
[2018-03-23] MEDS: ACCU-CHEK XX (02:00)
[2018-03-23 06:02] LABS: ADD MAN DIFF? NO
[2018-03-23 06:11] LABS: BASOPHILS % 0.3 % (0.0-2.0); EOSINOPHILS % 0.5 % (0.0-7.0); HEMATOCRIT 33.7 % (42.0-52.0); HEMOGLOBIN 10.7 g/dl (14.0-18.0); LYMPHOCYTES # 1.2 10^3/ul (0.8-2.9); LYMPHOCYTES % 15.4 % (15.0-51.0); MEAN CORPUSCULAR HEMOGLOBIN 28.9 pg (29.0-33.0); MEAN CORPUSCULAR HGB CONC 31.8 g/dl (32.0-37.0); MEAN CORPUSCULAR VOLUME 91.1 fl (82.0-101.0); MEAN PLATELET VOLUME 10.5 fl (7.4-10.4); MONOCYTE # 0.9 10^3/ul (0.3-0.9); MONOCYTES % 11.9 % (0.0-11.0); NEUTROPHIL # 5.7 10^3/ul (1.6-7.5); NEUTROPHILS % 71.6 % (39.0-77.0); PLATELET COUNT 272 10^3/UL (140-415); RED CELL DISTRIBUTION WIDTH 13.6 % (11.5-14.5)
[2018-03-23 06:11] LABS: WHITE BLOOD COUNT 7.9 10^3/ul (4.8-10.8)
[2018-03-23] MEDS: MEROPENEM 1 GM/50ML(PMX) 50 ML IVPB ×3 (06:16→21:04)
[2018-03-23] MEDS: LEVOTHYROXINE 50 MCG TAB PO (06:16)
[2018-03-23 06:42] LABS: MAGNESIUM 1.7 mg/dl (1.7-2.5)
[2018-03-23 06:42] LABS: PHOSPHORUS 2.8 mg/dl (2.5-4.9)
[2018-03-23 06:44] LABS: ANION GAP 10 (8-16); BLOOD UREA NITROGEN 8 mg/dl (7-20); CALCIUM 8.6 mg/dl (8.4-10.2); CARBON DIOXIDE 27 mmol/L (21-31); CHLORIDE 104 mmol/L (97-110); CREATININE 0.84 mg/dl (0.61-1.24); GLUCOSE 134 mg/dl (70-220); POTASSIUM 3.8 mmol/L (3.5-5.1); SODIUM 137 mmol/L (135-144)
[2018-03-23] MEDS: INSULIN ASPART [NOVOLOG] 3 ML PEN SC ×4 (08:00→20:49)
[2018-03-23] MEDS: FISH OIL 1,000 MG CAP PO ×2 (08:13→20:46)
[2018-03-23] MEDS: OLOPATADINE 0.2% (ONCE A DAY) OPHTH DROP 2.5 ML BOTH EYES (08:13)
[2018-03-23] MEDS: ARTIFICIAL TEARS 15 ML OPH BOTH EYES (08:13)
[2018-03-23] MEDS: PREGABALIN 75 MG CAP PO ×2 (08:13→20:46)
[2018-03-23] MEDS: ASPIRIN 81 MG TAB PO (08:14)
[2018-03-23] MEDS: PANTOPRAZOLE (EC) 40 MG TAB PO (08:14)
[2018-03-23] MEDS: METOPROLOL 25 MG TAB PO ×2 (08:16→20:46)
[2018-03-23] MEDS: INSULIN GLARGINE [LANTus] (100 UNITS/ML) SYG SC (08:18)
[2018-03-23] MEDS: ENOXAPARIN 40 MG/0.4 ML SYG SC (08:19)
[2018-03-23] MEDS: ACETAMINOPHEN 325 MG TAB PO ×3 (10:03→22:02)
[2018-03-23] MEDS: ATORVASTATIN 40 MG TAB PO (20:46)
[2018-03-24] MEDS: ACCU-CHEK XX (02:00)
[2018-03-24] MEDS: MEROPENEM 1 GM/50ML(PMX) 50 ML IVPB ×3 (05:55→21:01)
[2018-03-24] MEDS: LEVOTHYROXINE 50 MCG TAB PO (06:01)
[2018-03-24 07:34] LABS: ADD MAN DIFF? NO
[2018-03-24 07:38] LABS: BASOPHILS % 0.2 % (0.0-2.0); EOSINOPHILS % 0.2 % (0.0-7.0); HEMATOCRIT 32.5 % (42.0-52.0); HEMOGLOBIN 10.5 g/dl (14.0-18.0); LYMPHOCYTES # 1.2 10^3/ul (0.8-2.9); LYMPHOCYTES % 14.2 % (15.0-51.0); MEAN CORPUSCULAR HEMOGLOBIN 29.6 pg (29.0-33.0); MEAN CORPUSCULAR HGB CONC 32.3 g/dl (32.0-37.0); MEAN CORPUSCULAR VOLUME 91.5 fl (82.0-101.0); MEAN PLATELET VOLUME 10.3 fl (7.4-10.4); MONOCYTES % 12.6 % (0.0-11.0); NEUTROPHILS % 72.4 % (39.0-77.0); PLATELET COUNT 270 10^3/UL (140-415); RED BLOOD COUNT 3.55 10^6/ul (4.70-6.10); RED CELL DISTRIBUTION WIDTH 13.5 % (11.5-14.5)
[2018-03-24 07:38] LABS: WHITE BLOOD COUNT 8.2 10^3/ul (4.8-10.8)
[2018-03-24] MEDS: INSULIN ASPART [NOVOLOG] 3 ML PEN SC ×4 (08:00→20:59)
[2018-03-24 08:05] LABS: ANION GAP 11 (8-16); BLOOD UREA NITROGEN 15 mg/dl (7-20); CALCIUM 8.5 mg/dl (8.4-10.2); CARBON DIOXIDE 28 mmol/L (21-31); CHLORIDE 101 mmol/L (97-110); CREATININE 1.03 mg/dl (0.61-1.24); GLUCOSE 148 mg/dl (70-220); POTASSIUM 3.8 mmol/L (3.5-5.1); SODIUM 136 mmol/L (135-144)
[2018-03-24 08:06] LABS: PHOSPHORUS 3.7 mg/dl (2.5-4.9)
[2018-03-24 08:06] LABS: MAGNESIUM 1.8 mg/dl (1.7-2.5)
[2018-03-24] MEDS: ARTIFICIAL TEARS 15 ML OPH BOTH EYES (08:46)
[2018-03-24] MEDS: PREGABALIN 75 MG CAP PO ×2 (08:47→20:55)
[2018-03-24] MEDS: METOPROLOL 25 MG TAB PO ×2 (08:47→20:55)
[2018-03-24] MEDS: PANTOPRAZOLE (EC) 40 MG TAB PO (08:47)
[2018-03-24] MEDS: FISH OIL 1,000 MG CAP PO ×2 (08:47→20:55)
[2018-03-24] MEDS: ASPIRIN 81 MG TAB PO (08:48)
[2018-03-24] MEDS: INSULIN GLARGINE [LANTus] (100 UNITS/ML) SYG SC (08:49)
[2018-03-24] MEDS: ENOXAPARIN 40 MG/0.4 ML SYG SC (08:50)
[2018-03-24] MEDS: OLOPATADINE 0.2% (ONCE A DAY) OPHTH DROP 2.5 ML BOTH EYES (08:52)
[2018-03-24] MEDS: FUROSEMIDE 20 MG INJ IV (16:48)
[2018-03-24] MEDS: ATORVASTATIN 40 MG TAB PO (20:55)
[2018-03-25] MEDS: ACCU-CHEK XX (02:00)
[2018-03-25] MEDS: MEROPENEM 1 GM/50ML(PMX) 50 ML IVPB ×3 (06:01→21:27)
[2018-03-25] MEDS: LEVOTHYROXINE 50 MCG TAB PO (06:02)
[2018-03-25] MEDS: INSULIN ASPART [NOVOLOG] 3 ML PEN SC ×4 (08:00→21:34)
[2018-03-25] MEDS: FISH OIL 1,000 MG CAP PO ×2 (08:25→20:12)
[2018-03-25] MEDS: PREGABALIN 75 MG CAP PO ×2 (08:25→20:12)
[2018-03-25] MEDS: ASPIRIN 81 MG TAB PO (08:25)
[2018-03-25] MEDS: PANTOPRAZOLE (EC) 40 MG TAB PO (08:25)
[2018-03-25] MEDS: METOPROLOL 25 MG TAB PO ×2 (08:26→20:13)
[2018-03-25] MEDS: ENOXAPARIN 40 MG/0.4 ML SYG SC (08:28)
[2018-03-25] MEDS: INSULIN GLARGINE [LANTus] (100 UNITS/ML) SYG SC (08:28)
[2018-03-25] MEDS: ARTIFICIAL TEARS 15 ML OPH BOTH EYES (09:37)
[2018-03-25] MEDS: OLOPATADINE 0.2% (ONCE A DAY) OPHTH DROP 2.5 ML BOTH EYES (09:37)
[2018-03-25 10:04] LABS: ADD MAN DIFF? NO
[2018-03-25 10:14] LABS: BASOPHILS % 0.2 % (0.0-2.0); EOSINOPHILS # 0.1 10^3/ul (0.0-0.5); EOSINOPHILS % 1.2 % (0.0-7.0); HEMATOCRIT 32.8 % (42.0-52.0); HEMOGLOBIN 10.8 g/dl (14.0-18.0); LYMPHOCYTES # 1.1 10^3/ul (0.8-2.9); LYMPHOCYTES % 13.6 % (15.0-51.0); MEAN CORPUSCULAR HEMOGLOBIN 29.8 pg (29.0-33.0); MEAN CORPUSCULAR HGB CONC 32.9 g/dl (32.0-37.0); MEAN CORPUSCULAR VOLUME 90.6 fl (82.0-101.0); MEAN PLATELET VOLUME 10.3 fl (7.4-10.4); MONOCYTES % 12.6 % (0.0-11.0); NEUTROPHIL # 5.8 10^3/ul (1.6-7.5); NEUTROPHILS % 71.9 % (39.0-77.0); PLATELET COUNT 285 10^3/UL (140-415); RED BLOOD COUNT 3.62 10^6/ul (4.70-6.10); RED CELL DISTRIBUTION WIDTH 13.3 % (11.5-14.5)
[2018-03-25 10:14] LABS: WHITE BLOOD COUNT 8.1 10^3/ul (4.8-10.8)
[2018-03-25 10:44] LABS: PHOSPHORUS 2.2 mg/dl (2.5-4.9)
[2018-03-25 10:44] LABS: MAGNESIUM 1.8 mg/dl (1.7-2.5)
[2018-03-25] MEDS ORDERED: LIDOCAINE 1% (MPF) 5 ML VIAL SC (11:00)
[2018-03-25] MEDS: ACETAMINOPHEN 325 MG TAB PO ×2 (11:07→21:40)
[2018-03-25 11:10] LABS: ALANINE AMINOTRANSFERASE 33 IU/L (13-69); ALBUMIN 3.1 g/dl (3.3-4.9); ALBUMIN/GLOBULIN RATIO 0.88; ALKALINE PHOSPHATASE 73 IU/L (42-121); ANION GAP 13 (8-16); ASPARTATE AMINO TRANSFERASE 41 IU/L (15-46); BILIRUBIN,INDIRECT 0.4 mg/dl (0-1.1); BILIRUBIN,TOTAL 0.4 mg/dl (0.2-1.3); BLOOD UREA NITROGEN 16 mg/dl (7-20); CALCIUM 8.5 mg/dl (8.4-10.2); CARBON DIOXIDE 27 mmol/L (21-31); CHLORIDE 100 mmol/L (97-110); CREATININE 0.91 mg/dl (0.61-1.24); GLUCOSE 208 mg/dl (70-220); POTASSIUM 3.5 mmol/L (3.5-5.1); SODIUM 136 mmol/L (135-144); TOTAL PROTEIN 6.6 g/dl (6.1-8.1)
[2018-03-25] MEDS: ATORVASTATIN 40 MG TAB PO (20:12)
[2018-03-26] MEDS: ACCU-CHEK XX (02:00)
[2018-03-26] MEDS: MEROPENEM 1 GM/50ML(PMX) 50 ML IVPB (06:51)
[2018-03-26] MEDS: LEVOTHYROXINE 50 MCG TAB PO (06:51)
[2018-03-26 07:42] LABS: WHITE BLOOD COUNT 6.4 10^3/ul (4.8-10.8)
[2018-03-26 07:42] LABS: ADD MAN DIFF? NO; BASOPHILS % 0.5 % (0.0-2.0); EOSINOPHILS # 0.2 10^3/ul (0.0-0.5); EOSINOPHILS % 2.7 % (0.0-7.0); HEMOGLOBIN 10.9 g/dl (14.0-18.0); LYMPHOCYTES # 2.3 10^3/ul (0.8-2.9); LYMPHOCYTES % 35.9 % (15.0-51.0); MEAN CORPUSCULAR HEMOGLOBIN 28.7 pg (29.0-33.0); MEAN CORPUSCULAR HGB CONC 32.1 g/dl (32.0-37.0); MEAN CORPUSCULAR VOLUME 89.5 fl (82.0-101.0); MEAN PLATELET VOLUME 10.6 fl (7.4-10.4); MONOCYTE # 0.9 10^3/ul (0.3-0.9); MONOCYTES % 13.7 % (0.0-11.0); NEUTROPHILS % 46.9 % (39.0-77.0); PLATELET COUNT 315 10^3/UL (140-415); RED CELL DISTRIBUTION WIDTH 13.5 % (11.5-14.5)
[2018-03-26] MEDS: INSULIN ASPART [NOVOLOG] 3 ML PEN SC ×2 (08:00→12:50)
[2018-03-26 08:21] LABS: ANION GAP 10 (8-16); BLOOD UREA NITROGEN 15 mg/dl (7-20); CALCIUM 8.9 mg/dl (8.4-10.2); CARBON DIOXIDE 31 mmol/L (21-31); CHLORIDE 101 mmol/L (97-110); CREATININE 0.85 mg/dl (0.61-1.24); GLUCOSE 140 mg/dl (70-220); POTASSIUM 3.3 mmol/L (3.5-5.1); SODIUM 139 mmol/L (135-144)
[2018-03-26] MEDS: PANTOPRAZOLE (EC) 40 MG TAB PO (08:24)
[2018-03-26] MEDS: FISH OIL 1,000 MG CAP PO (08:24)
[2018-03-26] MEDS: METOPROLOL 25 MG TAB PO (08:24)
[2018-03-26] MEDS: PREGABALIN 75 MG CAP PO (08:24)
[2018-03-26] MEDS: ASPIRIN 81 MG TAB PO (08:24)
[2018-03-26] MEDS: OLOPATADINE 0.2% (ONCE A DAY) OPHTH DROP 2.5 ML BOTH EYES (08:25)
[2018-03-26] MEDS: ARTIFICIAL TEARS 15 ML OPH BOTH EYES (08:25)
[2018-03-26] MEDS: ENOXAPARIN 40 MG/0.4 ML SYG SC (08:29)
[2018-03-26] MEDS: INSULIN GLARGINE [LANTus] (100 UNITS/ML) SYG SC (08:29)
[2018-03-26] MEDS: ERTAPENEM SODIUM 1 GM in SOD CHLORIDE 0.9% 100 ML IVPB (10:46)
[2018-03-26] MEDS: POTASSIUM CHLORIDE (SR) 20 MEQ TAB PO (10:48)
[2018-03-26] MEDS: ACETAMINOPHEN 325 MG TAB PO (10:52)
[2018-03-26] MEDS: LACTOBACILLUS RHAMNOSUS CAP PO (12:48)
[2018-03-27] MEDS ORDERED: ERGOCALCIFEROL 50,000 UNIT CAP PO (12:13)
== END 2018-03-26 17:05 | disposition home health service (06) | DRG 871 ==
LOC: E/R 21:02 → 2NE 03-22 13:41
PROVIDERS: Internal Medicine
PROC: 02HV33Z Insertion of Infusion Device into Superior Vena Cava, Percutaneous Approach (ICD-10-PCS; principal; 2018-03-25)
PROC: B54NZZA Ultrasonography of Left Upper Extremity Veins, Guidance (ICD-10-PCS; 2018-03-25)
DX: A41.51 Sepsis due to Escherichia coli [E. coli] (principal); G93.40 Encephalopathy, unspecified; N39.0 Urinary tract infection, site not specified; J45.909 Unspecified asthma, uncomplicated; E78.5 Hyperlipidemia, unspecified; I10 Essential (primary) hypertension; E03.9 Hypothyroidism, unspecified; M17.11 Unilateral primary osteoarthritis, right knee; I25.10 Atherosclerotic heart disease of native coronary artery without angina pectoris; Z68.39 Body mass index [BMI] 39.0-39.9, adult; E66.01 Morbid (severe) obesity due to excess calories; E11.42 Type 2 diabetes mellitus with diabetic polyneuropathy; Z79.82 Long term (current) use of aspirin; Z79.84 Long term (current) use of oral hypoglycemic drugs
CPT/HCPCS: 36415; 36569; 71045; 74176; 76937; 80048; 80053; 81001; 82962; 83605; 83735; 84100; 84484; 85025; 85610; 85730; 87040; 87045; 87086; 93005; 96374; 96375; 99285-25

== ENCOUNTER 2018-04-18 13:11 | Inpatient (IN) | payer MEDICARE, OTHER ==
[2018-04-18 13:30] LABS: ADD MAN DIFF? NO
[2018-04-18 13:36] LABS: WHITE BLOOD COUNT 7.9 10^3/ul (4.8-10.8)
[2018-04-18 13:36] LABS: BASOPHILS % 0.3 % (0.0-2.0); EOSINOPHILS # 0.2 10^3/ul (0.0-0.5); EOSINOPHILS % 2.7 % (0.0-7.0); HEMATOCRIT 29.5 % (42.0-52.0); HEMOGLOBIN 9.7 g/dl (14.0-18.0); LYMPHOCYTES % 12.7 % (15.0-51.0); MEAN CORPUSCULAR HEMOGLOBIN 29.1 pg (29.0-33.0); MEAN CORPUSCULAR HGB CONC 32.9 g/dl (32.0-37.0); MEAN CORPUSCULAR VOLUME 88.6 fl (82.0-101.0); MONOCYTE # 0.7 10^3/ul (0.3-0.9); MONOCYTES % 9.1 % (0.0-11.0); NEUTROPHIL # 5.9 10^3/ul (1.6-7.5); NEUTROPHILS % 74.9 % (39.0-77.0); PLATELET COUNT 267 10^3/UL (140-415); RED BLOOD COUNT 3.33 10^6/ul (4.70-6.10); RED CELL DISTRIBUTION WIDTH 14.7 % (11.5-14.5)
[2018-04-18] MEDS: CEFEPIME 2GM/50 ML (PMX) 50 ML IVPB (13:42)
[2018-04-18] MEDS: LORAZEPAM 2 MG INJ IV (13:42)
[2018-04-18 13:43] LABS: ADD UMIC YES; UR ASCORBIC ACID NEGATIVE (NEGATIVE); UR BACTERIA FEW /HPF (NONE SEEN); UR BILIRUBIN (Dip) NEGATIVE (NEGATIVE); UR BLOOD (Dip) 1+ mg/dL (NEGATIVE); UR CLARITY CLEAR (CLEAR); UR COLOR COLORLESS (YELLOW); UR GLUCOSE (Dip) NEGATIVE (NEGATIVE); UR KETONES (Dip) NEGATIVE (NEGATIVE); UR LEUKOCYTE ESTERASE (Dip) TRACE Leu/ul (NEGATIVE); UR NITRITE (Dip) NEGATIVE (NEGATIVE); UR RBC 1 /HPF (0-5); UR SPECIFIC GRAVITY (Dip) 1.004 (1.003-1.030); UR TOTAL PROTEIN (Dip) NEGATIVE (NEGATIVE); UR UROBILINOGEN (Dip) NEGATIVE (NEGATIVE); UR WBC 2 /HPF (0-5)
[2018-04-18 14:00] LABS: LACTIC ACID 1.3 mmol/L (0.5-2.0)
[2018-04-18 14:02] LABS: ALANINE AMINOTRANSFERASE 16 IU/L (13-69); ALBUMIN 3.3 g/dl (3.3-4.9); ALKALINE PHOSPHATASE 101 IU/L (42-121); ANION GAP 21 (8-16); ASPARTATE AMINO TRANSFERASE 52 IU/L (15-46); BILIRUBIN,INDIRECT 0.1 mg/dl (0-1.1); BILIRUBIN,TOTAL 0.1 mg/dl (0.2-1.3); BLOOD UREA NITROGEN 64 mg/dl (7-20); CALCIUM 7.3 mg/dl (8.4-10.2); CARBON DIOXIDE 20 mmol/L (21-31); CHLORIDE 103 mmol/L (97-110); CREATININE 10.57 mg/dl (0.61-1.24); GLUCOSE 96 mg/dl (70-220); POTASSIUM 5.7 mmol/L (3.5-5.1); SODIUM 138 mmol/L (135-144); TOTAL PROTEIN 7.4 g/dl (6.1-8.1)
[2018-04-18] MEDS: VANCOMYCIN 1 GM (PMX) 250 ML IVPB (14:06)
[2018-04-18 14:07] LABS: INR 0.97
[2018-04-18 14:08] LABS: PARTIAL THROMBOPLASTIN TIME 32.6 Sec (25.0-35.0)
[2018-04-18 14:10] LABS: AMMONIA < 9 umol/l (9-30)
[2018-04-18 14:15] LABS: TROPONIN-I < 0.012 ng/ml (0.000-0.120)
[2018-04-18] MEDS ORDERED: ONDANSETRON 4 MG INJ IV ×2 (15:00→15:30)
[2018-04-18] MEDS ORDERED: ACETAMINOPHEN 325 MG TAB PO ×2 (15:00→15:30)
[2018-04-18] MEDS ORDERED: DEXTROSE 50% 50 ML SYRINGE (15:27)
[2018-04-18] MEDS ORDERED: MAGNESIUM HYDROXIDE 30ML CUP PO (15:30)
[2018-04-18] MEDS ORDERED: NITROGLYCERIN (SL) 0.4 MG TAB SL (15:30)
[2018-04-18] MEDS ORDERED: HYDROCODONE/APAP (5/325) TAB PO (15:30)
[2018-04-18] MEDS ORDERED: ALBUTEROL/IPRATROPIUM (NEB) 3 ML AMP HHN (15:30)
[2018-04-18] MEDS ORDERED: NACL 0.9% 3 ML SYG IV (15:30)
[2018-04-18] MEDS ORDERED: hydrALAzine 20 MG INJ IV (15:30)
[2018-04-18] MEDS ORDERED: DOCUSATE SODIUM 100 MG CAP PO (15:30)
[2018-04-18] MEDS ORDERED: NA PHOSPHATE/BIPHOS 133 ML ENEMA PR (15:30)
[2018-04-18] MEDS ORDERED: LORAZEPAM 2 MG INJ IV (15:30)
[2018-04-18] MEDS: NA BICARBONATE 8.4% 50 ML SYG IV (15:33)
[2018-04-18] MEDS: DEXTROSE 50% 50 ML SYRINGE IV ×4 (15:33→22:45)
[2018-04-18] MEDS: SOD CHLORIDE 0.9% 1,000 ML IV (15:52)
[2018-04-18 16:21] LABS: INR 1.09; PROTIME 14.3 Sec (11.9-14.9); PT RATIO 1.1
[2018-04-18] MEDS: DEXTROSE 5%-0.9% NACL 1,000 ML IV ×2 (16:21→19:36)
[2018-04-18 16:22] LABS: PARTIAL THROMBOPLASTIN TIME 34.9 Sec (25.0-35.0)
[2018-04-18 16:53] LABS: FREE T4 (FREE THYROXINE) 0.72 ng/dl (0.85-1.93)
[2018-04-18 18:29] LABS: IRON 30 ug/dl (35-150)
[2018-04-18 18:38] LABS: % IRON SATURATION 13 % SAT (22-52); TOTAL IRON BINDING CAPACITY 236 ug/dl (241-421)
[2018-04-18 18:49] LABS: ANION GAP 15 (8-16); BLOOD UREA NITROGEN 64 mg/dl (7-20); CALCIUM 7.3 mg/dl (8.4-10.2); CARBON DIOXIDE 23 mmol/L (21-31); CHLORIDE 105 mmol/L (97-110); CREATININE 10.68 mg/dl (0.61-1.24); POTASSIUM 4.5 mmol/L (3.5-5.1); SODIUM 138 mmol/L (135-144)
[2018-04-18 18:50] LABS: LACTIC ACID 0.6 mmol/L (0.5-2.0)
[2018-04-18 19:04] LABS: GLUCOSE 45 mg/dl (70-220)
[2018-04-18] MEDS ORDERED: PREGABALIN 75 MG CAP PO (21:00)
[2018-04-18] MEDS: METOPROLOL 25 MG TAB PO (21:37)
[2018-04-18] MEDS: GLUCOSE GEL 15 GRAM TUBE BUCCAL (22:15)
[2018-04-18] MEDS ORDERED: DEXTROSE 50% 50 ML SYRINGE IV ×2 (22:30)
[2018-04-18] MEDS ORDERED: GLUCOSE GEL 15 GRAM TUBE PO ×2 (22:30)
[2018-04-18] MEDS ORDERED: GLUCAGON 1 MG INJ IM (22:30)
[2018-04-18] MEDS: ACCU-CHEK XX (23:00)
[2018-04-19] MEDS: ACCU-CHEK XX ×4 (01:00→07:00)
[2018-04-19] MEDS: DEXTROSE 5%-0.9% NACL 1,000 ML IV ×3 (02:30→14:54)
[2018-04-19 06:21] LABS: ADD MAN DIFF? NO
[2018-04-19 06:44] LABS: WHITE BLOOD COUNT 7.7 10^3/ul (4.8-10.8)
[2018-04-19 06:44] LABS: BASOPHILS % 0.4 % (0.0-2.0); EOSINOPHILS # 0.4 10^3/ul (0.0-0.5); EOSINOPHILS % 4.8 % (0.0-7.0); HEMATOCRIT 29.6 % (42.0-52.0); HEMOGLOBIN 9.6 g/dl (14.0-18.0); LYMPHOCYTES # 1.1 10^3/ul (0.8-2.9); LYMPHOCYTES % 14.7 % (15.0-51.0); MEAN CORPUSCULAR HEMOGLOBIN 28.7 pg (29.0-33.0); MEAN CORPUSCULAR HGB CONC 32.4 g/dl (32.0-37.0); MEAN CORPUSCULAR VOLUME 88.4 fl (82.0-101.0); MEAN PLATELET VOLUME 10.9 fl (7.4-10.4); MONOCYTE # 0.7 10^3/ul (0.3-0.9); MONOCYTES % 9.4 % (0.0-11.0); NEUTROPHIL # 5.4 10^3/ul (1.6-7.5); NEUTROPHILS % 70.3 % (39.0-77.0); PLATELET COUNT 189 10^3/UL (140-415); RED BLOOD COUNT 3.35 10^6/ul (4.70-6.10); RED CELL DISTRIBUTION WIDTH 14.6 % (11.5-14.5)
[2018-04-19 07:16] LABS: CHOL/HDL RATIO 2.2 RATIO; HDL CHOLESTEROL 35 mg/dl (31-75); LDL CHOLESTEROL,CALCULATED 26 mg/dl; TRIGLYCERIDES 82 mg/dl (0-149)
[2018-04-19 07:16] LABS: CHOLESTEROL 77 mg/dl (100-200)
[2018-04-19 07:35] LABS: ANION GAP 17 (8-16); BLOOD UREA NITROGEN 58 mg/dl (7-20); CALCIUM 7.2 mg/dl (8.4-10.2); CARBON DIOXIDE 23 mmol/L (21-31); CHLORIDE 105 mmol/L (97-110); CREATININE 10.34 mg/dl (0.61-1.24); GLUCOSE 111 mg/dl (70-220); MAGNESIUM 1.3 mg/dl (1.7-2.5); PHOSPHORUS 9.6 mg/dl (2.5-4.9); POTASSIUM 4.9 mmol/L (3.5-5.1); SODIUM 140 mmol/L (135-144)
[2018-04-19] MEDS: PANTOPRAZOLE (EC) 40 MG TAB PO (08:35)
[2018-04-19] MEDS: METOPROLOL 25 MG TAB PO ×2 (08:36→21:05)
[2018-04-19] MEDS: OLOPATADINE 0.2% (ONCE A DAY) OPHTH DROP 2.5 ML BOTH EYES (08:36)
[2018-04-19 09:02] LABS: HEMOGLOBIN A1C 7.1 % (0-5.9)
[2018-04-19] MEDS: MAGNESIUM SULFATE 2 GM/50 ML 50 ML IVPB (10:29)
[2018-04-19] MEDS ORDERED: MAGNESIUM SULFATE 2 GM/50 ML 50 ML IVPB (11:00)
[2018-04-19] MEDS ORDERED: LEVOTHYROXINE 25 MCG TAB PO (11:00)
[2018-04-19 11:29] LABS: CREATININE,URINE RANDOM 28.62 mg/dl (20-370); PROTEIN/CREAT RATIO 1.29 RATIO
[2018-04-19] MEDS: CALCIUM ACETATE 667 MG CAP PO ×2 (11:34→17:35)
[2018-04-19] MEDS: INSULIN ASPART [NOVOLOG] 3 ML PEN SC ×3 (11:34→21:14)
[2018-04-19] MEDS: SOD FERRIC GLUC COMPLX 125 MG in SOD CHLORIDE 0.9% 100 ML IVPB (17:32)
[2018-04-20] MEDS: DEXTROSE 5%-0.9% NACL 1,000 ML IV (02:46)
[2018-04-20] MEDS ORDERED: LEVOTHYROXINE 25 MCG TAB PO ×2 (06:00)
[2018-04-20] MEDS: LEVOTHYROXINE 25 MCG TAB PO (06:10)
[2018-04-20 06:20] LABS: ADD MAN DIFF? NO
[2018-04-20 06:26] LABS: BASOPHILS % 0.4 % (0.0-2.0); EOSINOPHILS # 0.4 10^3/ul (0.0-0.5); EOSINOPHILS % 5.8 % (0.0-7.0); HEMATOCRIT 31.2 % (42.0-52.0); HEMOGLOBIN 10.3 g/dl (14.0-18.0); LYMPHOCYTES # 1.4 10^3/ul (0.8-2.9); LYMPHOCYTES % 19.5 % (15.0-51.0); MEAN CORPUSCULAR HEMOGLOBIN 29.4 pg (29.0-33.0); MEAN CORPUSCULAR VOLUME 89.1 fl (82.0-101.0); MEAN PLATELET VOLUME 10.5 fl (7.4-10.4); MONOCYTE # 0.7 10^3/ul (0.3-0.9); MONOCYTES % 10.5 % (0.0-11.0); NEUTROPHIL # 4.4 10^3/ul (1.6-7.5); NEUTROPHILS % 63.2 % (39.0-77.0); PLATELET COUNT 215 10^3/UL (140-415); RED CELL DISTRIBUTION WIDTH 14.5 % (11.5-14.5)
[2018-04-20 06:55] LABS: ANION GAP 19 (8-16); BLOOD UREA NITROGEN 56 mg/dl (7-20); CALCIUM 7.9 mg/dl (8.4-10.2); CARBON DIOXIDE 18 mmol/L (21-31); CHLORIDE 107 mmol/L (97-110); CREATININE 9.36 mg/dl (0.61-1.24); GLUCOSE 128 mg/dl (70-220); POTASSIUM 4.5 mmol/L (3.5-5.1); SODIUM 139 mmol/L (135-144)
[2018-04-20] MEDS: INSULIN ASPART [NOVOLOG] 3 ML PEN SC ×4 (07:55→20:58)
[2018-04-20] MEDS: CALCIUM ACETATE 667 MG CAP PO ×3 (09:30→18:45)
[2018-04-20] MEDS: PANTOPRAZOLE (EC) 40 MG TAB PO (09:30)
[2018-04-20] MEDS: METOPROLOL 25 MG TAB PO ×2 (09:30→20:55)
[2018-04-20] MEDS: OLOPATADINE 0.2% (ONCE A DAY) OPHTH DROP 2.5 ML BOTH EYES (09:31)
[2018-04-20] MEDS: SOD CHLORIDE 0.45% 1,000 ML IV ×2 (11:00→21:00)
[2018-04-20] MEDS: SOD FERRIC GLUC COMPLX 125 MG in SOD CHLORIDE 0.9% 100 ML IVPB (17:39)
[2018-04-21 06:09] LABS: ADD MAN DIFF? NO
[2018-04-21] MEDS: LEVOTHYROXINE 25 MCG TAB PO (06:12)
[2018-04-21 06:19] LABS: WHITE BLOOD COUNT 7.1 10^3/ul (4.8-10.8)
[2018-04-21 06:19] LABS: BASOPHILS % 0.6 % (0.0-2.0); EOSINOPHILS # 0.4 10^3/ul (0.0-0.5); EOSINOPHILS % 5.2 % (0.0-7.0); HEMATOCRIT 32.6 % (42.0-52.0); HEMOGLOBIN 10.4 g/dl (14.0-18.0); LYMPHOCYTES # 1.6 10^3/ul (0.8-2.9); LYMPHOCYTES % 22.1 % (15.0-51.0); MEAN CORPUSCULAR HEMOGLOBIN 28.4 pg (29.0-33.0); MEAN CORPUSCULAR HGB CONC 31.9 g/dl (32.0-37.0); MEAN CORPUSCULAR VOLUME 89.1 fl (82.0-101.0); MEAN PLATELET VOLUME 10.6 fl (7.4-10.4); MONOCYTE # 0.7 10^3/ul (0.3-0.9); MONOCYTES % 9.2 % (0.0-11.0); NEUTROPHIL # 4.4 10^3/ul (1.6-7.5); NEUTROPHILS % 62.5 % (39.0-77.0); PLATELET COUNT 234 10^3/UL (140-415); RED BLOOD COUNT 3.66 10^6/ul (4.70-6.10); RED CELL DISTRIBUTION WIDTH 14.4 % (11.5-14.5)
[2018-04-21] MEDS: SOD CHLORIDE 0.45% 1,000 ML IV ×3 (06:54→23:53)
[2018-04-21 07:06] LABS: ANION GAP 20 (8-16); BLOOD UREA NITROGEN 54 mg/dl (7-20); CALCIUM 8.5 mg/dl (8.4-10.2); CARBON DIOXIDE 20 mmol/L (21-31); CHLORIDE 110 mmol/L (97-110); CREATININE 8.76 mg/dl (0.61-1.24); GLUCOSE 109 mg/dl (70-220); POTASSIUM 4.4 mmol/L (3.5-5.1); SODIUM 146 mmol/L (135-144)
[2018-04-21] MEDS: INSULIN ASPART [NOVOLOG] 3 ML PEN SC ×4 (07:55→21:00)
[2018-04-21] MEDS: PANTOPRAZOLE (EC) 40 MG TAB PO (08:19)
[2018-04-21] MEDS: CALCIUM ACETATE 667 MG CAP PO ×3 (08:19→17:55)
[2018-04-21] MEDS: OLOPATADINE 0.2% (ONCE A DAY) OPHTH DROP 2.5 ML BOTH EYES (08:20)
[2018-04-21] MEDS: METOPROLOL 25 MG TAB PO ×2 (08:20→21:01)
[2018-04-21] MEDS: morphine 2 MG INJ IV (17:47)
[2018-04-21] MEDS: SOD FERRIC GLUC COMPLX 125 MG in SOD CHLORIDE 0.9% 100 ML IVPB (17:51)
[2018-04-22] MEDS: LEVOTHYROXINE 25 MCG TAB PO (05:52)
[2018-04-22 06:50] LABS: ADD MAN DIFF? NO
[2018-04-22 07:00] LABS: BASOPHILS % 0.5 % (0.0-2.0); EOSINOPHILS # 0.4 10^3/ul (0.0-0.5); EOSINOPHILS % 4.8 % (0.0-7.0); HEMATOCRIT 34.1 % (42.0-52.0); LYMPHOCYTES # 2.1 10^3/ul (0.8-2.9); LYMPHOCYTES % 25.7 % (15.0-51.0); MEAN CORPUSCULAR HEMOGLOBIN 28.7 pg (29.0-33.0); MEAN CORPUSCULAR HGB CONC 32.3 g/dl (32.0-37.0); MEAN PLATELET VOLUME 10.1 fl (7.4-10.4); MONOCYTE # 0.6 10^3/ul (0.3-0.9); MONOCYTES % 7.5 % (0.0-11.0); NEUTROPHIL # 4.9 10^3/ul (1.6-7.5); PLATELET COUNT 267 10^3/UL (140-415); RED BLOOD COUNT 3.83 10^6/ul (4.70-6.10); RED CELL DISTRIBUTION WIDTH 14.3 % (11.5-14.5)
[2018-04-22 07:28] LABS: ANION GAP 20 (8-16); BLOOD UREA NITROGEN 49 mg/dl (7-20); CALCIUM 8.6 mg/dl (8.4-10.2); CARBON DIOXIDE 22 mmol/L (21-31); CHLORIDE 108 mmol/L (97-110); CREATININE 7.19 mg/dl (0.61-1.24); GLUCOSE 110 mg/dl (70-220); POTASSIUM 4.5 mmol/L (3.5-5.1); SODIUM 145 mmol/L (135-144)
[2018-04-22] MEDS: INSULIN ASPART [NOVOLOG] 3 ML PEN SC ×2 (07:55→11:57)
[2018-04-22] MEDS: SOD CHLORIDE 0.45% 1,000 ML IV ×2 (07:59→13:23)
[2018-04-22] MEDS: PANTOPRAZOLE (EC) 40 MG TAB PO (08:17)
[2018-04-22] MEDS: OLOPATADINE 0.2% (ONCE A DAY) OPHTH DROP 2.5 ML BOTH EYES (08:17)
[2018-04-22] MEDS: METOPROLOL 25 MG TAB PO (08:17)
[2018-04-22] MEDS: CALCIUM ACETATE 667 MG CAP PO ×2 (08:17→11:54)
[2018-04-24] MEDS ORDERED: ERGOCALCIFEROL 50,000 UNIT CAP PO (09:00)
== END 2018-04-22 14:30 | disposition home or self-care (01) | DRG 682 ==
LOC: E/R 13:11 → TEL 14:45
DX: N17.9 Acute kidney failure, unspecified (principal); G93.41 Metabolic encephalopathy; E11.649 Type 2 diabetes mellitus with hypoglycemia without coma; T36.8X5A Adverse effect of other systemic antibiotics, initial encounter; E11.22 Type 2 diabetes mellitus with diabetic chronic kidney disease; E11.21 Type 2 diabetes mellitus with diabetic nephropathy; D63.1 Anemia in chronic kidney disease; T38.3X5A Adverse effect of insulin and oral hypoglycemic [antidiabetic] drugs, initial encounter; T37.0X5A Adverse effect of sulfonamides, initial encounter; J45.909 Unspecified asthma, uncomplicated; I25.10 Atherosclerotic heart disease of native coronary artery without angina pectoris; E66.9 Obesity, unspecified; Z68.33 Body mass index [BMI] 33.0-33.9, adult; M19.90 Unspecified osteoarthritis, unspecified site; E03.9 Hypothyroidism, unspecified; I12.9 Hypertensive chronic kidney disease with stage 1 through stage 4 chronic kidney disease, or unspecified chronic kidney disease; N18.9 Chronic kidney disease, unspecified; D50.9 Iron deficiency anemia, unspecified; Y92.019 Unspecified place in single-family (private) house as the place of occurrence of the external cause; Z79.84 Long term (current) use of oral hypoglycemic drugs
CPT/HCPCS: 36415; 70450; 71045; 76775; 80048; 80053; 80061; 81001; 81003; 82140; 82570; 82728; 82962; 83036; 83540; 83605; 83735; 84100; 84439; 84443; 84484; 85025; 85610; 85730; 87040; 87081; 87086; 89190; 92610; 93005; 93971; 96365; 96375; 97161; 97166; 99291-25